=== PATIENT | male | born 2000 | race Asian ===

== ENCOUNTER 2022-03-02 11:08 | Emergency (ER) | payer MEDICAID, SELFPAY ==
[2022-03-02 11:10] VITALS: BP 135/111; PULSE 71; RESP 18; TEMP 36.6; O2SAT 100; BMI 30.2
--- NOTE | 2022-03-02 11:22 | CT_ITS ---
STUDY: CT ABDOMEN AND PELVIS WITHOUT CONTRAST REASON FOR EXAM: Male, 21 years old. LEFT FLANK AND GENITAL PAIN RADIATION DOSAGE (If Supplied By Facility): CTDIvol = ( 8.98 ) mGy, DLP = ( 545.36 ) mGycm TECHNIQUE: Transaxial images were obtained from the dome of the diaphragm to the symphysis pubis without oral contrast, and without intravenous contrast. Sagittal and coronal images were reconstructed. Individualized dose optimization techniques were used for this CT. COMPARISON: None. FINDINGS: The visualized lung bases are unremarkable. The visualized portions of the heart are within normal limits. Normal liver. Normal gallbladder and extrahepatic biliary system. Normal spleen. Normal pancreas. Normal bilateral adrenal glands. Normal right kidney. 2 mm nonobstructive calculus in the upper pole of the left kidney. Mild degree of the left hydronephrosis and left hydroureter due to a 4.8 mm calculus at the left ureterovesical junction. There is a small hiatal hernia. Normal small intestine. Normal colon. There are surgical clips in the region of the appendix consistent with a prior appendectomy. Normal abdominal aorta. Normal inferior vena cava. Normal retroperitoneum. Normal urinary bladder. Normal abdominal wall. Normal osseous structures. CT/Abdomen/Pelvis without Cont IMPRESSION: 4.8 mm calculus at the left ureterovesical junction causing mild degree of left hydronephrosis and hydroureter. 2 mm nonobstructive calculus in the upper pole calyx of the left kidney. Electronically Signed: Donaldo Mckee MD at 12:06 EDT ,
--- NOTE | 2022-03-02 11:37 | EX.ED.DYSGE1 ---
HPI <ARGELIA Porter - Last Filed: 03/02/22 12:43> History of Present Illness Chief Complaint: Flank Pain Narrative Narrative: 21-year-old male with no stated medical history presents the emergency department with a sudden onset of left-sided back pain that rates down the left front to the left testicle. Patient states this started about 1 hour prior to arrival. Patient states the pressure and stabbing sensation is severe, patient states it started all at once. Patient states he is never felt severely this before. He denies any fever or chills. Denies any difficulty urinating. Denies any nausea or vomiting. PFSH <ARGELIA Porter - Last Filed: 03/02/22 12:43> [facility]LY [facility] Medical History no medical history Home Medications ondansetron 4 mg disintegrating tablet 4 mg PO Q8H PRN nausea and vomiting #10 tabs 03/02/22 [Rx Last Taken Unknown] oxycodone-acetaminophen 5 mg-325 mg tablet (Percocet) 1 tab PO Q6H PRN pain 3 days #10 tabs 03/02/22 [Rx Last Taken Unknown] tamsulosin 0.4 mg capsule (Flomax) 0.4 mg PO DAILY 7 days #7 caps 03/02/22 [Rx Last Taken Unknown] Allergy/AdvReac Type Severity Reaction Status Date / Time No Known Allergies Allergy Verified 03/02/22 11:09 Family History no significant family his Surgical History no surgical history Social History Smoking Status: Never smoker ROS <ARGELIA Porter - Last Filed: 03/02/22 12:43> ROS ED ROS Narrative Constitutional: Negative for fever, chills, weight loss, weakness Eyes: Negative for vision loss, vision change, double vision ENT: Negative for any sore throat, ear pain, congestion Cardiovascular: Negative for any chest pain, tightness, palpitations Respiratory: Negative for any cough, sputum production, hemoptysis, dyspnea, dyspnea on exertion, orthopnea Gastrointestinal: Negative for any, nausea, vomiting, diarrhea, constipation, blood in stool, blood in vomit. Positive left lower abdominal pain, left flank pain : Negative for any urinary frequency, dysuria, retention, blood in urine Muscle skeletal: Negative for any muscle joint pain, stiffness, myalgias, arthralgias, neck pain. Positive left-sided back pain Neurological: Negative for any headache, syncope, numbness or tingling, dizziness Skin: Negative for any rashes, lumps, itching, abrasions, lacerations Psychiatric: Negative for any depression, anxiety, stress, suicidal ideation, homicidal ideation Hematologic: Negative for any easy bruising, excessive bruising, easy bleeding Allergies: Negative for any eczema, hives, rash EXAM <ARGELIA Porter - Last Filed: 03/02/22 12:43> Physical Exam Narrative Exam Narrative: Vital signs reviewed. Patient appears to be in moderate distress secondary to pain to the left flank and the left lower abdomen. HEET: Head normocephalic atraumatic, TMs clear bilaterally. Posterior pharynx is clear, moist mucous membranes. Nares clear bilaterally. Neck: Supple with no lymphadenopathy or tenderness. No signs of meningismus, negative jolt sign. Cardiac: Regular rate and rhythm no murmurs gallops or rubs, equal peripheral pulses bilaterally. Respiratory: Lungs clear to auscultation bilaterally. No chest tenderness. Abdomen: Soft, nontender, nondistended. No abdominal bruit or pulsatile masses. No hepatosplenomegaly Extremities: No peripheral edema, no signs of gross trauma or deformity. Active full range of motion of all extremities. Neuro: Cranial nerves II through XII intact, no focal neurological deficits. Skin: Clean dry and intact with no rash, purpura, petechiae, vesicles or pustules. Backs/flank: No CVA tenderness, no midline spinal tenderness, no deformity. Psych: Normal mood and affect. No SI, HI or acute psychosis. testicular exam: Testicular exam was completed, patient has no tenderness on palpation, no evidence of torsion, hydrocele, epididymitis. Negative for any lesions. Const Vital Signs: 03/02/22 11:10 Temperature 97.8 F Temperature Source Temporal Pulse Rate 71 Respiratory Rate 18 Blood Pressure 135/111 H Blood Pressure Mean 119 Pulse Ox 100 Oxygen Delivery Method Room Air <Dr. Mary Kay Meza, DO - Last Filed: 03/05/22 03:38> Physical Exam Const Vital Signs: 03/02/22 11:10 Temperature 97.8 F Temperature Source Temporal Pulse Rate 71 Respiratory Rate 18 Blood Pressure 135/111 H Blood Pressure Mean 119 Pulse Ox 100 Oxygen Delivery Method Room Air MDM <ARGELIA Porter - Last Filed: 03/02/22 12:43> MDM Lab Data Labs: Laboratory Results - last 24 hr 03/02/22 03/02/22 03/02/22 10:17 10:17 10:17 WBC 7.4 RBC 5.28 Hgb 14.9 Hct 44.0 MCV 83.3 MCH 28.2 MCHC 33.9 RDW Std Deviation 38.6 RDW Coeff of Mikki 12.7 Plt Count 268 MPV 10.5 Immature Gran % (Auto) 0.400 Neut % (Auto) 61.8 Lymph % (Auto) 29.1 [place] % (Auto) 6.0 Eos % (Auto) 2.3 Baso % (Auto) 0.4 Absolute Neuts (auto) 4.6 Absolute Lymphs (auto) 2.14 Nucleated RBC % 0 Sodium 142 Potassium 3.8 Chloride 109 H Carbon Dioxide 26.0 Anion Gap 7 BUN 11 Creatinine 0.87 Estim Creat Clear Calc 114.87 Est GFR (MDRD) Af Amer 138 Est GFR (MDRD) Non-Af 114 BUN/Creatinine Ratio 12.6 Glucose 117 H Calcium 9.5 Urine Color Yellow Urine Clarity Clear Urine pH 5.0 Ur Specific [place] 1.025 Urine Protein Negative Urine Glucose (UA) Normal Urine Ketones 5 H Urine Occult Blood 10 H Urine Nitrite Negative Urine Bilirubin Negative Urine Urobilinogen Normal Ur Leukocyte Esterase Negative Urine RBC 0 SEEN Urine WBC 0 SEEN Ur Squamous Epith Cells 0 SEEN Urine Bacteria 0 SEEN Urine Mucus 0 SEEN Radiography Diagnostic Testing: Clinical Impression(s) from Imaging Studies Abdomen/Pelvis CT 03/02/22 11:22 IMPRESSION: 4.8 mm calculus at the left ureterovesical junction causing mild degree of left hydronephrosis and hydroureter. 2 mm nonobstructive calculus in the upper pole calyx of the left kidney. Electronically Signed: Donaldo Mckee MD at 12:06 EDT , Treatment and Re-Evaluation Narrative: Patient will receive IV pain medicine, IV nausea medicine, patient will receive a basic work-up to rule out any obstructing kidney stone, pyelonephritis. Patient will receive a CT scan without contrast of the abdomen pelvis. Patient appears to be in mild distress secondary to left-sided flank pain, patient did receive a full kidney stone work-up, patient appears nontoxic.Patient was given IV fluids, IV morphine, Zofran, Toradol. Patient did receive some basic laboratory values, patient CBC, BMP was unremarkable. Patient did have some occult blood in his stool however no infection. Patient did receive a CT scan of the abdomen pelvis without contrast, this did show a 4.8 mm calculus at the left ureterovesicular junction causing mild degree of left hydronephrosis and hydroureter. This does explain the patient's symptoms. Patient on reevaluation felt much better. Patient be sent home with pain medicine, nausea medicine, Flomax. He will also receive a urology follow-up. 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 Patient is happy with the plan of care, he feels much better and is stable for discharge. He was given return precautions to return for any back pain, fever chills nausea or vomiting. <Dr. Mary Kay Meza, DO - Last Filed: 03/05/22 03:38> [facility] Lab Data Attestation: I reviewed the patient's lab results. Labs: Laboratory Results - last 24 hr 03/02/22 03/02/22 03/02/22 10:17 10:17 10:17 WBC 7.4 RBC 5.28 Hgb 14.9 Hct 44.0 MCV 83.3 MCH 28.2 MCHC 33.9 RDW Std Deviation 38.6 RDW Coeff of Mikki 12.7 Plt Count 268 MPV 10.5 Immature Gran % (Auto) 0.400 Neut % (Auto) 61.8 Lymph % (Auto) 29.1 [place] % (Auto) 6.0 Eos % (Auto) 2.3 Baso % (Auto) 0.4 Absolute Neuts (auto) 4.6 Absolute Lymphs (auto) 2.14 Nucleated RBC % 0 Sodium 142 Potassium 3.8 Chloride 109 H Carbon Dioxide 26.0 Anion Gap 7 BUN 11 Creatinine 0.87 Estim Creat Clear Calc 114.87 Est GFR (MDRD) Af Amer 138 Est GFR (MDRD) Non-Af 114 BUN/Creatinine Ratio 12.6 Glucose 117 H Calcium 9.5 Urine Color Yellow Urine Clarity Clear Urine pH 5.0 Ur Specific [place] 1.025 Urine Protein Negative Urine Glucose (UA) Normal Urine Ketones 5 H Urine Occult Blood 10 H Urine Nitrite Negative Urine Bilirubin Negative Urine Urobilinogen Normal Ur Leukocyte Esterase Negative Urine RBC 0 SEEN Urine WBC 0 SEEN Ur Squamous Epith Cells 0 SEEN Urine Bacteria 0 SEEN Urine Mucus 0 SEEN Radiography Diagnostic Testing: Clinical Impression(s) from Imaging Studies Abdomen/Pelvis CT 03/02/22 11:22 IMPRESSION: 4.8 mm calculus at the left ureterovesical junction causing mild degree of left hydronephrosis and hydroureter. 2 mm nonobstructive calculus in the upper pole calyx of the left kidney. Electronically Signed: Donaldo Mckee MD at 12:06 EDT , Treatment and Re-Evaluation Narrative: Patient will receive IV pain medicine, IV nausea medicine, patient will receive a basic work-up to rule out any obstructing kidney stone, pyelonephritis. Patient will receive a CT scan without contrast of the abdomen pelvis. Patient appears to be in mild distress secondary to left-sided flank pain, patient did receive a full kidney stone work-up, patient appears nontoxic.Patient was given IV fluids, IV morphine, Zofran, Toradol. Patient did receive some basic laboratory values, patient CBC, BMP was unremarkable. Patient did have some occult blood in his stool however no infection. Patient did receive a CT scan of the abdomen pelvis without contrast, this did show a 4.8 mm calculus at the left ureterovesicular junction causing mild degree of left hydronephrosis and hydroureter. This does explain the patient's symptoms. Patient on reevaluation felt much better. Patient be sent home with pain medicine, nausea medicine, Flomax. He will also receive a urology follow-up. 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 Patient is happy with the plan of care, he feels much better and is stable for discharge. He was given return precautions to return for any back pain, fever chills nausea or vomiting. I have personally performed a face to face assessment of the patient and have reviewed the RACQUEL Note. I performed a substantive portion of the visit including all aspects of the following. My elder findings include: History is patient is a 21-year-old male with no past medical history proceed with sudden onset of left-sided flank pain that radiates into his groin. Denies any urinary symptoms. Never had anything like this before. Denies any history of kidney stones. Exam is Laying in bed, no acute distress on my exam. Head normocephalic/atraumatic. Moist mucosal membranes. Neck is supple with no JVD. Lungs are clear to auscultation bilaterally. Heart regular rate and rhythm. Abdomen soft and nontender. No CVA tenderness on my exam. Genital exam performed by nurse practitioner with normal cremasteric reflex and no tenderness of the testicles. Normal external genitalia. Normal peripheral extremities with normal pulses. No rash appreciated. Medical Decision Making Patient is treated for sudden onset of left-sided flank pain. Presentation concerning for obstructive kidney stone. Patient's vital signs are stable. Patient is given IV morphine, fluids, Zofran and Toradol with significant improvement of his symptoms. CBC and BMP as well as urinalysis are normal. CT of the abdomen and pelvis without contrast shows a 4.8 mm calculus at the left UVJ with mild left hydronephrosis and hydroureter. There is an additional 2 mm nonobstructive calculus at the upper pole of the left kidney. I suspect patient is obstructing stone which is causing his presentation today. Patient is informed of CT findings. Given his resolution of symptoms in the ER and good pain control as well as normal kidney function I suspect he can be treated conservatively and likely will pass the stone on his own. Is given referral for urology. Given prescriptions for Percocet, Zofran and Flomax. Also encouraged to take [id number] ibuprofen as needed. Counseled on return precautions. Patient discharged in stable condition and in agreement with plan of care. Other additions or changes: [None] Discharge Plan Triage Chief Complaint: Flank Pain ED Midlevel Provider: Isaías Aguirre ED Provider: Mary Kay Meza Dx/Rx/DC Orders Clinical Impression: Acute flank pain, Kidney calculi, Hydronephrosis Instructions: ED Kidney Stone w/ Colic Prescriptions: New oxycodone-acetaminophen [Percocet] 5-325 mg tablet 1 tab PO Q6H PRN (Reason: pain) 3 Days Qty: 10 0RF tamsulosin [Flomax] 0.4 mg capsule 0.4 mg PO DAILY 7 Days Qty: 7 0RF ondansetron 4 mg tablet,disintegrating 4 mg PO Q8H PRN (Reason: nausea and vomiting) Qty: 10 0RF Primary Care Provider: Care Physician,No Primary Referrals: Dawson Hester MD [Med Staff - Active Staff] - Care Physician,No Primary [Primary Care Provider] - Activity Restrictions/Additional Instructions: Use pain medicines as needed, please follow-up with urology. Return here for any worsening symptoms. Disposition Disposition: Home, Self Care
[2022-03-02] MEDS: Ondansetron 4 MG/2 ML Vial IV (11:40)
[2022-03-02] MEDS: 0.9% Normal Saline 1,000 ML 1000 ML IV (11:40)
[2022-03-02] MEDS: Morphine 4 MG/ML Syringe IV (11:40)
[2022-03-02] MEDS: Ketorolac 15 MG/ML Vial IV (11:40)
[2022-03-02 11:41] LABS: Bacteria 0 SEEN /hpf (None Seen); Mucous, Urine 0 SEEN /hpf (<or=2+); Red Blood Cells-Urine 0 SEEN /hpf (0-5); Squamous Epithelial Cells - UA 0 SEEN /hpf (0-5); White Blood Cells 0 SEEN /hpf (0-5)
[2022-03-02 11:46] LABS: Absolute Lymphocyte Count 2.14 X10^3/uL (0.83-4.51); Absolute Neutrophil Count 4.6 X10^3/uL (2.0-7.7); Basophil# 0.03 X10^3/uL; Basophil% 0.4 % (0-1); Eosinophil# 0.17 X10^3/uL; Eosinophils% 2.3 % (0-5); Hemoglobin 14.9 g/dL (13.0-16.5); Lymphocyte # 2.14 X10^3/ul (0.83-4.51); Lymphocyte % 29.1 % (19-41); Mean Corp Hgb Conc 33.9 g/dL (32-36); Mean Corpuscular Hgb 28.2 pg (27.0-32.0); Mean Corpuscular Volume 83.3 fL (80-94); Mean Platelet Vol. 10.5 fl (6.2-12.0); Monocyte# 0.44 X10^3/uL; NRBC Flagged by Analyzer 0 % (0-5); Neutrophil # 4.55 X10^3/uL (2.7-7.7); Neutrophil % 61.8 % (47-70); Platelet Count 268 K/mm3 (150-450); RBC Distribution Width CV 12.7 % (11.6-14.6); RBC Distribution Width SD 38.6 fl (35.1-43.9); Red Blood Count 5.28 M/mm3 (4.6-6.2); White Blood Count 7.4 K/mm3 (4.4-11.0)
[2022-03-02 11:49] LABS: Color, Urine Yellow (Yellow); Glucose, Dipstick Normal (Normal); Ketone-Dipstick 5 mg/dl (Negative); Leukocyte Esterase-Dipstick Negative /ul (Negative); Nitrite-Dipstick Negative (Negative); Occult Blood-Urine 10 /ul (Negative); Protein-Dipstick Negative (Negative); Specific Gravity, Urine 1.025 (1.002-1.030); Urine Bilirubin Dipstick Negative (Negative); Urine Clarity Clear (Clear); Urine Urobilinogen Normal (Normal)
[2022-03-02 11:58] LABS: Anion Gap 7 (5-15); BUN 11 mg/dL (7-18); BUN/Creat Ratio 12.6 RATIO (10-20); Calcium,Total 9.5 mg/dL (8.5-10.1); Chloride 109 mmol/L (98-107); Creatinine, Serum 0.87 mg/dL (0.70-1.30); EST Glomerular Filtration Rate 114 mL/min (>60); Est Glom Filt Rate - Afr Amer 138 mL/min (>60); Estimated Creatinine Clearance 114.87 ml/min; Glucose 117 mg/dL (74-106); Potassium 3.8 mmol/L (3.5-5.1); Sodium Level 142 mmol/L (136-145)
--- NOTE | 2022-03-02 12:39 | ED.RN ---
THIS RN SPOKE WITH NURSE FROM [employer]- PATIENTS EMPLOYER. 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 NURSE VERIFIED THAT PATIENT WILL NOT DRIVE HOME AND WILL NOT RETURN TO WORK. SOMEONE FROM [employer] IN HIS DEPARTMENT WILL COME TO PICK HIM UP
[2022-03-02 12:43] VITALS: RESP 18
== END 2022-03-02 12:55 | disposition home or self-care (01) ==
PROVIDERS: Nurse Practitioner; Emergency Provider Emergency Medicine; Visit Provider Emergency Medicine
DX: N13.2 Hydronephrosis with renal and ureteral calculous obstruction (principal); R10.9 Unspecified abdominal pain
CPT/HCPCS: 74176; 80048; 81001; 85025; 96361; 96374; 96375; 99285; J7030; A4216; J2405